=== PATIENT | female | born 1945 | race Caucasian/White ===

== ENCOUNTER → 2016-04-22 | Outpatient (CLI) | payer MEDICARE ==
[~2016-04-22] MED LIST: ACETAMINOPHEN PR; AMBIEN PO; ANUSOL-HC21 GM PR; ASPIRIN81 MG PO; BYSTOLIC5 MG PO; CALCIUM 500 + D1 TAB PO; CALCIUM1 TAB.CHEW PO; CALCIUM500 MG PO; COLACE PO; DIOVAN HCT 160-1 TAB PO; LIPITOR PO; MILK OF MAGNESIA PO; MULTI VITAMIN1 EACH PO; NATURAL LAXATIV25 MG PO; PRILOSEC PO; PRILOSEC20 MG PO; VIT C PO; VITAMIN D1000 UNI1 PO; VITAMIN D50000 UNIT; VITAMIN D50000 UNIT PO
--- NOTE | ~2016-04-22 | MY11 ---
[facility] A Service of [facility] RADIOLOGY TEXT RESULTS PATIENT: SHARAD PATEL [facility] : 47 UNIT #: [id number] AGE: [address]: Robert Anderson MD SEX: F ORDER DR: [id number] [facility]. [place], [place] [address] [id number] O MR#: [id number] Acc #: [id number] NAME: SHARAD PATEL : 1945 SEX: F STUDY DATE/TIME: 04/22/2016 14:55 [facility] ROOM: STUDY DESCRIPTION: MY Mammogram Screening Dig Jose Luis Attending Physician: Robert Anderson Jr., M.D. Referring Physician: Robert Anderson Jr., M.D. Ordering Physician: Robert Anderson Jr., M.D. Primary Care Physician: Robert Anderson Jr., M.D. MEDICAL IMAGING REPORT This report is preliminary unless electronic signature is present EXAM Bilateral digital screening mammogram with CAD, 04/22/2016 INDICATION Routine screening. No current complaints. Family history of breast cancer in aunt. COMPARISON 02/27/2015, 02/14/2014, 02/01/2013. FINDINGS MLO and CC digital views of each breast were obtained. The exam was reviewed with an FDA-approved CAD device. There are scattered fibroglandular densities present. There are no masses or abnormal calcifications. There has been no change. IMPRESSION No change and no evidence of malignancy. Patients over the age of 40 are entered into a reminder system with target due date for the next mammogram. A result letter will also be sent to the patient. BIRADS: 1 Negative Dictated by... Papi Suggs M.D. THIS IS AN ELECTRONICALLY VERIFIED REPORT Papi Suggs M.D. at 04/23/2016 6:04 AM PRATIK/aaron [facility] A Service [facility] RADIOLOGY TEXT RESULTS PATIENT: SHARAD PATEL [facility] : 46 UNIT #: [id number] AGE: [address]: Robert Anderson MD SEX: F ORDER DR: TD: 04/22/2016 21:24 JOB #: [id number] MEDICAL IMAGING REPORT COPY
== END | disposition home or self-care (01) ==
LOC: CWCC 14:22
DX: Z12.31 Encounter for screening mammogram for malignant neoplasm of breast (principal); Z80.3 Family history of malignant neoplasm of breast
CPT/HCPCS: G0202